=== PATIENT | female | born 1965 | race Caucasian/White ===

== ENCOUNTER 2017-01-29 14:31 | Emergency (ER) | payer OTHER ==
[~2017-01-29] VITALS: Ht 170.2 cm; Wt 62.9 kg
[2017-01-29] MEDS ORDERED: ADVAIR 250/501 DISK IH (15:04)
[2017-01-29] MEDS ORDERED: SINGULAIR10 MG PO (15:05)
[2017-01-29] MEDS ORDERED: VENTOLIN HFA18 GM IH (15:05)
[2017-01-29 15:20] LABS: MCV 87.8 FL (83-99); MEAN PLAT.VOLUME 10.5 uM^3 (9.5-12.4); RBC DIS.WIDTH-CV 11.9 % (11.8-14.6); RBC DIS.WIDTH-SD 38.3 % (39-53); WHITE BLOOD COUNT 4.9 K/uL (4.1-10.2)
[2017-01-29 15:21] LABS: PLATELET COUNT 213 K/uL (156-360)
[2017-01-29 15:31] LABS: ADD MIUA? YES; BILIRUBIN NEGATIVE; BLOOD NEGATIVE; COLOR YELLOW ((YELLOW)); GLUCOSE (STRIP) NEGATIVE; KETONES NEGATIVE; LEUKOCYTES SMALL; NITRITE POSITIVE; PROTEIN (STRIP) 30; SPECIFIC GRAVITY 1.027 (1.000-1.030); UROBILINOGEN 0.2 MG/DL (0.2-1.0)
[2017-01-29 16:05] LABS: BACTERIA 2+ /HPF; CASTS NONE SEEN /LPF; CRYSTALS NONE SEEN; EPITHELIAL CELLS 1+ /HPF; MUCUS NONE SEEN /LPF; RED BLOOD CELLS RARE /HPF (0-5); UCUL ADDED? YES
[2017-01-29 16:06] LABS: CHLORIDE 105 mEq/L (99-109)
[2017-01-29 16:07] LABS: POTASSIUM 3.5 mEq/L (3.7-5.4); SODIUM 139 mEq/L (136-147)
[2017-01-29 16:09] LABS: GLUCOSE 73 mg/dL (70-99)
[2017-01-29 16:10] LABS: ANION GAP 7 MEQ/L (2-14)
[2017-01-29 16:11] LABS: TOTAL BILIRUBIN 0.3 mg/dL (0.0-1.0)
[2017-01-29 16:12] LABS: ALKALINE PHOSPHATASE 39 IU/L (3-129); GFR ESTIMATE (CALCULATED) > 59 mL/min/
[2017-01-29 16:14] LABS: UREA NITROGEN (BUN) 10 mg/dL (9-23)
[2017-01-29 16:15] LABS: TROP-I INTERPRETATION NEGATIVE; TROPONIN-I < 0.01 ng/mL (0.0-0.30)
[2017-01-29 16:16] LABS: LIPASE 15 U/L (1.0-51.0)
[2017-01-29 16:40] LABS: QUANTITATIVE HCG < 4.0 MIU/ML
[2017-01-29 17:06] LABS: PLAT.SUFFICIENCY ADEQUATE
[2017-01-29] MEDS ORDERED: LEVAQUIN500 MG PO (20:31)
[2017-01-29 20:42] VITALS: BP 118/59
== END 2017-01-29 20:44 | disposition home or self-care (01) ==
LOC: EME 14:31
PROVIDERS: Physician Assistant Medical
DX: N30.90 Cystitis, unspecified without hematuria (principal); N39.0 Urinary tract infection, site not specified; R19.7 Diarrhea, unspecified; J18.9 Pneumonia, unspecified organism
CPT/HCPCS: 71020; 74177; 80053; 81003; 83690; 84484; 84702; 85027; 87077; 87086; 87186; 87493; 93005; 99281; 99284; J1885; J7030